=== PATIENT | female | born 1980 | race Two or more races ===

== ENCOUNTER 2017-10-14 18:03 | Emergency (ER) | payer OTHER ==
[2017-10-14 18:53] LABS: BASOPHILS # (AUTO) 0.1 10^3/uL (0.0-0.1); BASOPHILS % (AUTO) 0.7 %; EOSINOPHILS # (AUTO) 0.5 10^3/uL (0.0-0.7); EOSINOPHILS % (AUTO) 5.1 %; HGB - HEMOGLOBIN 13.3 g/dL (12.0-16.0); LYMPHOCYTES # (AUTO) 3.4 10^3/uL (1.5-3.5); LYMPHOCYTES % (AUTO) 34.5 %; MEAN CORPUSCULAR HEMOGLOBIN 25.8 pg (27.0-31.0); MEAN CORPUSCULAR HGB CONC 31.6 g/dL (32.0-36.0); MEAN CORPUSCULAR VOLUME 81.7 fL (81.0-99.0); MEAN PLATELET VOLUME 8.3 fL (7.9-10.8); MONOCYTES # (AUTO) 0.8 10^3/uL (0.0-1.0); MONOCYTES % (AUTO) 8.1 %; NEUTROPHILS # (AUTO) 5.1 10^3/uL (1.5-6.6); NEUTROPHILS % (AUTO) 51.6 %; PLT - PLATELET COUNT 286 10^3/uL (130-450); RED BLOOD COUNT 5.17 10^6/uL (4.20-5.40); RED CELL DISTRIBUTION WIDTH 17.5 % (12.0-15.0); WHITE BLOOD COUNT 9.9 x10^3/uL (4.8-10.8)
[2017-10-14 19:07] LABS: ALBUMIN 3.7 g/dL (3.2-5.5); BILIRUBIN,TOTAL 0.9 mg/dL (0.2-1.0); CALCIUM 8.8 mg/dL (8.5-10.3); CREATININE 0.6 mg/dL (0.4-1.0); TOTAL PROTEIN 7.3 g/dL (6.7-8.2)
--- NOTE | 2017-10-14 21:38 | ED Physician Documentation ---
PD HPI NVD - Stated complaint Stated Complaint: AB PX - Chief complaint Chief Complaint: Abd Pain - History obtained from History obtained from: Patient - History of Present Illness Timing - onset: Last night Timing - details: Abrupt onset, Still present Associated symptoms: Abdominal pain, Other (nausea with only single vomiting, but having multiple diarrheal movements.) Contributing factors: No: Sick contact, Bad food Improved by: No: Vomiting Worsened by: Eating Similar symptoms before: Has not had sx before Recently seen: Not recently seen Review of Systems Constitutional: denies: Fever, Chills, Myalgias Nose: denies: Rhinorrhea / runny nose, Congestion Throat: denies: Sore throat Respiratory: reports: Cough (some since yesterday) GI: reports: Abdominal Pain (cramping pain upper abd, fairly consistent.), Nausea, Vomiting, Diarrhea. denies: Bloody / black stool : denies: Dysuria, Frequency Skin: denies: Rash, Lesions Neurologic: reports: Generalized weakness. denies: Focal weakness, Numbness, Near syncope PD PAST MEDICAL HISTORY - Past Medical History Past Medical History: Yes Respiratory: None Neuro: None GI: None - Past Surgical History Past Surgical History: No - Present Medications Home Medications: Ambulatory Orders Medication Instructions Recorded Confirmed Cyclobenzaprine [Flexeril] 10 mg PO Q8H PRN #20 tablet 08/11/13 Ibuprofen [Motrin] 400 mg PO Q6H PRN #30 tablet 08/11/13 Loratadine [Claritin] 08/11/13 08/11/13 Ondansetron Odt [Zofran] 4 mg TL Q6H PRN #15 tablet 10/15/17 - Allergies Allergies/Adverse Reactions: Allergies Allergy/AdvReac Type Severity Reaction Status Date / Time No Known Drug Allergies Allergy Verified 10/14/17 18:23 - Social History Does the pt smoke?: No Smoking Status: Never smoker Does the pt drink ETOH?: No Does the pt have substance abuse?: No - Immunizations Immunizations are current?: Yes - POLST Patient has POLST: No PD ED PE NORMAL - Vitals Vital signs reviewed: Yes - General General: Alert and oriented X 3, Well developed/nourished, Other (appears uncomfortable) - HEENT HEENT: Pharynx benign - Neck Neck: Supple, no meningeal sign, No adenopathy - Cardiac Cardiac: RRR, No murmur - Respiratory Respiratory: Clear bilaterally - Abdomen Abdomen: Normal bowel sounds, Soft, Non distended, No organomegaly, Other (very obese. Tender upper abd mid to right with some local guarding. ) - Female Female : Deferred - Rectal Rectal: Deferred - Back Back: No CVA TTP - Derm Derm: Normal color, Warm and dry, No rash - Extremities Extremities: No tenderness to palpate, Normal ROM s pain - Neuro Neuro: Alert and oriented X 3, No motor deficit, Normal speech Results - Vitals Vitals: Vital Signs - 24 hr 10/14/17 10/14/17 10/14/17 18:20 21:12 22:36 Temperature 36.1 C L 36.9 C 36.8 C Heart Rate 66 61 60 Respiratory 16 16 12 Rate Blood Pressure 127/88 H 113/82 H 114/65 O2 Saturation 98 98 98 10/14/17 23:32 Temperature 36.6 C Heart Rate 79 Respiratory 12 Rate Blood Pressure 114/66 O2 Saturation 94 Oxygen O2 Source Room air - Labs Labs: Laboratory Tests 10/14/17 10/14/17 10/14/17 18:45 18:45 22:52 WBC 9.9 RBC 5.17 Hgb 13.3 Hct 42.2 MCV 81.7 MCH 25.8 L MCHC 31.6 L RDW 17.5 H Plt Count 286 MPV 8.3 Neut # (Auto) 5.1 Lymph # (Auto) 3.4 Glenn # (Auto) 0.8 Eos # (Auto) 0.5 Baso # (Auto) 0.1 Absolute Nucleated RBC 0.00 Nucleated RBC % 0.0 Sodium 138 Potassium 3.9 Chloride 105 Carbon Dioxide 23 Anion Gap 10.0 BUN 10 Creatinine 0.6 Estimated GFR (MDRD) 113 Glucose 96 Calcium 8.8 Total Bilirubin 0.9 AST 22 ALT 21 Alkaline Phosphatase 63 Total Protein 7.3 Albumin 3.7 Globulin 3.6 Albumin/Globulin Ratio 1.0 Lipase 37 Urine Color YELLOW Urine Clarity CLEAR Urine pH 6.0 Ur Specific [place] >=1.030 H Urine Protein NEGATIVE Urine Glucose (UA) NEGATIVE Urine Ketones NEGATIVE Urine Occult Blood TRACE-INTA Urine Nitrite NEGATIVE Urine Bilirubin NEGATIVE Urine Urobilinogen 0.2 (NORMAL) Ur Leukocyte Esterase NEGATIVE Ur Microscopic Review NOT INDICATED Urine Culture Comments NOT INDICATED PD MEDICAL DECISION MAKING - ED course Complexity details: reviewed results (Abd US is okay; labs are good. ), re- evaluated patient (feeling better with fluids and meds. Had long wait in wiating room and seen/treated promptly once into room. ), considered differential (consider viral GE versus gallbladder, pancreatic, ulcer. ), d/w patient - Sepsis Event Vital Signs: Vital Signs - 24 hr 10/14/17 10/14/17 10/14/17 18:20 21:12 22:36 Temperature 36.1 C L 36.9 C 36.8 C Heart Rate 66 61 60 Respiratory 16 16 12 Rate Blood Pressure 127/88 H 113/82 H 114/65 O2 Saturation 98 98 98 10/14/17 23:32 Temperature 36.6 C Heart Rate 79 Respiratory 12 Rate Blood Pressure 114/66 O2 Saturation 94 Oxygen O2 Source Room air Departure - Departure Disposition: 01 Home, Self Care Clinical Impression: Nausea vomiting and diarrhea Abdominal pain Qualifiers: Abdominal location: upper abdomen, unspecified Qualified Code(s): R10.10 - Upper abdominal pain, unspecified Condition: Stable Record reviewed to determine appropriate education?: Yes Follow-Up: MCKENNA HODGE PA-C [Primary Care Provider] - Prescriptions: Ondansetron Odt [Zofran] 4 mg TL Q6H PRN #15 tablet PRN Reason: Nausea / Vomiting Comments: This seems likely to be a viral stomach flu and typically last a day or 2. On blood tests and ultrasound, there are no signs of gallbladder liver or pancreatic problems. There may be some irritation of the stomach so have bland food initially and progress as able. Antacid such as Maalox or Mylanta can be used as well. Use ondansetron if needed for persistent nausea and hydrocodone if needed for pain. He can use Imodium for any persistent diarrhea. Recheck if not improved over the next couple of days. Forms: Activity restrictions Discharge Date/Time: 10/15/17 00:13
[2017-10-14] MEDS ORDERED: SODIUM CHLORIDE 0.9% 1,000 ML IV ONE (21:47)
[2017-10-14] MEDS ORDERED: ONDANSETRON 4 MG/2 ML VIAL IVP STA (21:47)
[2017-10-14] MEDS ORDERED: MAG HYDROX/AL HYDROX/SIMETH 30 ML UDC PO STA (21:47)
[2017-10-14] MEDS ORDERED: KETOROLAC 60 MG/2 ML VIAL IVP STA (21:47)
[2017-10-14] MEDS ORDERED: DIPHENOX/ATROPINE 2.5/0.025 MG TABLET PO STA (21:48)
[2017-10-14 23:12] LABS: BILIRUBIN,URINE NEGATIVE (NEGATIVE); GLUCOSE, URINE (UA) NEGATIVE (NEGATIVE); KETONES,URINE (UA) NEGATIVE (NEGATIVE); LEUKOCYTE ESTERASE, URINE NEGATIVE (NEGATIVE); NITRITE,URINE NEGATIVE (NEGATIVE); OCCULT BLOOD,URINE TRACE-INTA (NEGATIVE); PROTEIN,URINE NEGATIVE (NEGATIVE); UROBILINOGEN,URINE 0.2 (NORMAL) E.U./dL (NORMAL)
[2017-10-14 23:17] LABS: CLARITY,URINE CLEAR (CLEAR)
--- NOTE | 2017-10-14 23:20 | Ultrasound Report ---
Procedure Date: 10/14/2017 Accession Number: [id number] / [id number] Procedure: US - Abdomen Limited CPT Code: FULL RESULT: EXAM: ABDOMEN ULTRASOUND LIMITED, RUQ EXAM DATE: 10/14/2017 10:49 PM. CLINICAL HISTORY: Upper abdominal pain since last night. COMPARISON: None. TECHNIQUE: Real-time scanning was performed with static images obtained. FINDINGS: Mild diffuse increased echogenicity of the liver seen with mild fatty liver. Liver length measures 17.3 cm. Antegrade portal venous flow is demonstrated. The gallbladder wall measures 2.6 mm. No gallbladder wall thickening. No pericholecystic fluid. No gallstones are seen. Negative sonographic Prabhakar sign. The common duct measures 3 mm. No bile duct dilatation. The right kidney measures 12.2 cm. No hydronephrosis is seen in the right kidney. IMPRESSION: 1. Mild fatty liver. 2. No acute findings are seen. The gallbladder appears within normal limits. RADIA
[2017-10-14 23:35] VITALS: BP 114/66
[2017-10-14] MEDS ORDERED: ONDANSETRON ODT 4 MG Prepack 2 TL PRN (23:57)
[2017-10-14] MEDS ORDERED: HYDROcod/ACET 5/325 Prepack 4 PO STA (23:57)
== END 2017-10-15 00:13 | disposition home or self-care (01) ==
LOC: ED 18:03
DX: R11.2 Nausea with vomiting, unspecified (principal); R19.7 Diarrhea, unspecified; R10.10 Upper abdominal pain, unspecified
CPT/HCPCS: 36415; 76705; 80053; 81003; 83690; 85025; 96361; 96374; 96375; 99283; 99284; A9270; 81001; 87086

== ENCOUNTER 2018-04-18 09:41 | Emergency (ER) | payer OTHER ==
[2018-04-18 10:09] VITALS: BP 133/78
[2018-04-18] MEDS ORDERED: NAPROXEN 250 MG TABLET PO STA (10:30)
[2018-04-18] MEDS ORDERED: HYDROcod/ACETAM 5/325 MG TABLET PO STA (10:30)
--- NOTE | 2018-04-18 11:20 | XRAY Report ---
Reason: left hip pain without apparent injury Procedure Date: 04/18/2018 Accession Number: [id number] / [id number] Procedure: XR - Hip w/Pelvis 2-3V LT CPT Code: FULL RESULT: EXAM: LEFT HIP RADIOGRAPHY EXAM DATE: 04/18/2018 10:48 AM. CLINICAL HISTORY: Pain. No known injury. Onset of symptoms at 3 AM. COMPARISON: None. TECHNIQUE: 2 views. FINDINGS: Bones: Normal. No fractures or bone lesion. Joints: Normal. No dislocation. The hip joint space is preserved. Soft Tissues: Normal. No soft tissue swelling. IMPRESSION: Technically limited examination with decreased bone resolution related to patient's skin characteristic/body habitus. 1. No fracture or dislocation seen. 2. No definite cause of patient's symptoms identified. If indicated clinically, further assessment could also be considered with CT or MRI. RADIA
--- NOTE | 2018-04-18 11:26 | ED Physician Documentation ---
PD HPI LOWER EXT INJURY - Stated complaint Stated Complaint: HIP PX - Chief complaint Chief Complaint: Ext Problem - History obtained from History obtained from: Patient - History of Present Illness PD HPI LOW EXT INJURY LOCATION: Left, Hip (lateral aspect) Type of injury: No: Fall (just awoke with it hurting, no noted injury/redness/URI symptoms.), Twist Where injury occurred: Home Timing - onset: Today Timing - duration: Hours (several) Timing - details: Abrupt onset, Still present Worsened by: Moving (not hurting with flex/extend at hip, but with abduction and pain is lateral.), Palpating (lateral hip over trochanter area) Associated symptoms: No: Weakness, Numbness, Swelling, Discolored Similar symptoms before: Has not had sx before Review of Systems Constitutional: denies: Fever, Myalgias Nose: denies: Rhinorrhea / runny nose, Congestion Throat: denies: Sore throat Respiratory: denies: Cough Skin: denies: Rash, Lesions Neurologic: denies: Focal weakness, Numbness PD PAST MEDICAL HISTORY - Past Medical History Respiratory: None Neuro: None GI: None - Past Surgical History Past Surgical History: No - Present Medications Home Medications: Ambulatory Orders Medication Instructions Recorded Confirmed Hydrocodone/Acetaminophen [[place] 1 each PO Q6H PRN #15 tablet 04/18/18 5-325 Tablet] Naproxen 500 mg PO BID #20 tablet 04/18/18 - Allergies Allergies/Adverse Reactions: Allergies Allergy/AdvReac Type Severity Reaction Status Date / Time No Known Drug Allergies Allergy Verified 04/18/18 10:09 - Social History Does the pt smoke?: No Smoking Status: Never smoker Does the pt drink ETOH?: No Does the pt have substance abuse?: No - Immunizations Immunizations are current?: Yes - POLST Patient has POLST: No PD ED PE NORMAL - Vitals Vital signs reviewed: Yes - General General: Alert and oriented X 3, No acute distress, Well developed/nourished - HEENT HEENT: Pharynx benign - Neck Neck: Supple, no meningeal sign, No adenopathy - Cardiac Cardiac: RRR, No murmur - Respiratory Respiratory: Clear bilaterally - Abdomen Abdomen: Soft, Non tender - Back Back: No CVA TTP, No spinal TTP, Other (some tender at lower SI joint area) - Derm Derm: Normal color, Warm and dry - Extremities Extremities: Other (left lateral hip with tenderness over bursal area without redness, rash nor sores. Medial hip is not tender and has good ROM) Results - Vitals Vitals: Vital Signs - 24 hr 04/18/18 04/18/18 09:50 11:53 Temperature 36.7 C 36.5 C Heart Rate 61 78 Respiratory 20 Rate Blood Pressure 133/78 H 133/78 H O2 Saturation 18 L 99 Oxygen O2 Source Room air - Rads (name of study) left hip Radiology: Prelim report reviewed (no bony lesions. ) PD MEDICAL DECISION MAKING - ED course Complexity details: reviewed results, considered differential (seems like bursitis or has some muscle irritation. ) Departure - Departure Disposition: 01 Home, Self Care Clinical Impression: Acute pain of left hip Condition: Stable Record reviewed to determine appropriate education?: Yes Instructions: ED Strain Muscle Ext Prescriptions: Hydrocodone/Acetaminophen [[place] 5-325 Tablet] 1 each PO Q6H PRN #15 tablet PRN Reason: Pain Naproxen 500 mg PO BID #20 tablet Comments: Your x-ray appears normal. There is no obvious rash or such on the skin. It does not sound infection at this point. I presume some muscle strain nor inflammation of the bursa which is the cushion over the side of the hip. I would have you try some anti-inflammatory such as naproxen twice daily for the next week to 10 days. Add Tylenol or hydrocodone if needed for pain. Follow-up with your primary care if not improved over the next several days. Watch for other symptoms such as rash, numbness, increasing pain, fever or anything else that would change the thought process of what it is. Forms: Activity restrictions Discharge Date/Time: 04/18/18 11:40
== END 2018-04-18 11:40 | disposition home or self-care (01) ==
LOC: ED 09:41
DX: M25.552 Pain in left hip (principal)
CPT/HCPCS: 73502; 99283; A9270

== ENCOUNTER 2018-04-19 15:23 | Emergency (ER) | payer OTHER ==
[2018-04-19 15:35] VITALS: BP 135/78
--- NOTE | 2018-04-19 15:40 | ED Physician Documentation ---
History of Present Illness - Stated complaint Stated Complaint: LF HIP PX - Chief complaint Chief Complaint: Ext Problem - History obtained from History obtained from: Patient - History of Present Illness Timing: How many days ago (3) Pain level max: 7 Pain level now: 5 - Additonal information Additional information: 38-year-old female presents to the emergency department left hip pain. Started after she slipped and caught herself before she fell a few days ago. Worse with rotating the hip. Pain is mainly in the lateral aspect of the hip. Seen here 2 days ago for same. Pain is improving, but requesting a longer work note. Better with rest Review of Systems Constitutional: denies: Fever, Chills GI: denies: Vomiting Musculoskeletal: denies: Neck pain, Back pain Neurologic: denies: Focal weakness, Numbness PD PAST MEDICAL HISTORY - Past Medical History Respiratory: None Neuro: None GI: None - Past Surgical History Past Surgical History: No - Present Medications Home Medications: Ambulatory Orders Medication Instructions Recorded Confirmed Hydrocodone/Acetaminophen [[place] 1 each PO Q6H PRN #15 tablet 04/18/18 5-325 Tablet] Naproxen 500 mg PO BID #20 tablet 04/18/18 - Allergies Allergies/Adverse Reactions: Allergies Allergy/AdvReac Type Severity Reaction Status Date / Time No Known Drug Allergies Allergy Verified 04/19/18 15:34 - Social History Does the pt smoke?: No Smoking Status: Never smoker Does the pt drink ETOH?: No Does the pt have substance abuse?: No - Immunizations Immunizations are current?: Yes - POLST Patient has POLST: No PD ED PE NORMAL - Vitals Vital signs reviewed: Yes - General General: Alert and oriented X 3, No acute distress - HEENT HEENT: Moist mucous membranes - Neck Neck: Supple, no meningeal sign - Derm Derm: Warm and dry - Extremities Extremities: No edema, No calf tenderness / cord, Other (L hip - Tender palpation on the lateral aspect of the thigh. No bony tenderness. Full range of motion of the hip, pain is present with active range of motion but not passive.) - Neuro Neuro: Alert and oriented X 3 Results - Vitals Vitals: Vital Signs - 24 hr 04/19/18 15:32 Temperature 36.2 C L Heart Rate 75 Respiratory 18 Rate Blood Pressure 135/78 H O2 Saturation 99 Oxygen O2 Source Room air PD MEDICAL DECISION MAKING - ED course Complexity details: reviewed old records, considered differential, d/w patient, d/w family ED course: 38-year-old female with what appears to be muscle strain of her left lower extremity. She is well-appearing, nontoxic. Neurovascular intact. We will continue supportive care. Patient counseled regarding signs and symptoms for which I believe and urgent re-evaluation would be necessary. Patient with good understanding of and agreement to plan and is comfortable going home at this time This document was made in part using voice recognition software. While efforts are made to proofread this document, sound alike and grammatical errors may occur. Departure - Departure Disposition: Home, Self Care Clinical Impression: Strain of left hip Qualifiers: Encounter type: initial encounter Qualified Code(s): S76.012A - Strain of muscle, fascia and tendon of left hip, initial encounter Condition: Good Instructions: ED Strain Muscle Ext Follow-Up: your,doctor in 1 week [Other] Comments: Continue the medications as previously prescribed. Return if you worsen. Heat may also help this now. Forms: Activity restrictions Discharge Date/Time: 04/19/18 15:51
== END 2018-04-19 15:51 | disposition home or self-care (01) ==
LOC: ED 15:23
DX: S76.012A Strain of muscle, fascia and tendon of left hip, initial encounter (principal); W18.40XA Slipping, tripping and stumbling without falling, unspecified, initial encounter
CPT/HCPCS: 99282

== ENCOUNTER 2018-07-02 22:44 | Emergency (ER) | payer OTHER ==
--- NOTE | 2018-07-02 23:40 | ED Physician Documentation ---
PD HPI NVD - Stated complaint Stated Complaint: VOMITING - Chief complaint Chief Complaint: Abd Pain - History obtained from History obtained from: Patient - History of Present Illness Timing - onset: Enter time (03:00), Today Timing - details: Abrupt onset Pain level max: 0 Pain level now: 0 Associated symptoms: Other (did not take temp. at home). No: Abdominal pain Worsened by: Eating Similar symptoms before: Has not had sx before Recently seen: Not recently seen - Additonal information Additional information: c/o nausea, vomiting, diarrhea since 3 AM. unable to tolerate any PO including liquids Review of Systems Constitutional: reports: Chills, Sweats Cardiac: reports: Reviewed and negative Respiratory: reports: Reviewed and negative GI: reports: Nausea, Vomiting, Diarrhea. denies: Abdominal Pain : reports: Reviewed and negative PD PAST MEDICAL HISTORY - Past Medical History Respiratory: None Neuro: None GI: None - Past Surgical History Past Surgical History: No - Present Medications Home Medications: Ambulatory Orders Medication Instructions Recorded Confirmed Hydrocodone/Acetaminophen [[place] 1 each PO Q6H PRN #15 tablet 04/18/18 5-325 Tablet] Naproxen 500 mg PO BID #20 tablet 04/18/18 Diphenoxylate/Atropine [Lomotil] 1 - 2 each PO QID PRN #10 tablet 07/03/18 Ondansetron Odt [Zofran] 4 mg TL Q6H PRN #10 tablet 07/03/18 - Allergies Allergies/Adverse Reactions: Allergies Allergy/AdvReac Type Severity Reaction Status Date / Time Sulfa (Sulfonamide Allergy Rash Verified 07/02/18 22:51 Antibiotics) - Social History Does the pt smoke?: No Smoking Status: Never smoker Does the pt drink ETOH?: No Does the pt have substance abuse?: No - Immunizations Immunizations are current?: Yes - POLST Patient has POLST: No PD ED PE NORMAL - Vitals Vital signs reviewed: Yes - General General: Alert and oriented X 3, No acute distress, Well developed/nourished - Cardiac Cardiac: RRR, No murmur - Respiratory Respiratory: No respiratory distress, Clear bilaterally - Abdomen Abdomen: Normal bowel sounds, Soft, Non tender, Non distended Results - Vitals Vitals: Vital Signs - 24 hr 07/02/18 07/03/18 22:48 01:52 Temperature 36.9 C 36.4 C L Heart Rate 88 79 Respiratory 17 18 Rate Blood Pressure 116/82 H 114/68 O2 Saturation 98 99 Oxygen O2 Source Room air - Labs Labs: Laboratory Tests 07/02/18 07/02/18 23:50 23:50 WBC 11.7 H RBC 4.82 Hgb 12.2 Hct 37.7 MCV 78.2 L MCH 25.4 L MCHC 32.5 RDW 15.7 H Plt Count 377 MPV 8.1 Neut # (Auto) 9.5 H Lymph # (Auto) 1.3 L [place] # (Auto) 0.6 Eos # (Auto) 0.2 Baso # (Auto) 0.1 Absolute Nucleated RBC 0.00 Nucleated RBC % 0.0 Sodium 137 Potassium 3.6 Chloride 102 Carbon Dioxide 25 Anion Gap 10.0 BUN 10 Creatinine 0.5 Estimated GFR (MDRD) 139 Glucose 132 H Calcium 8.6 Total Bilirubin 1.4 H AST 23 ALT 24 Alkaline Phosphatase 57 Total Protein 7.9 Albumin 3.8 Globulin 4.1 Albumin/Globulin Ratio 0.9 L Lipase 29 PD MEDICAL DECISION MAKING - ED course Complexity details: reviewed results, re-evaluated patient, considered differential, d/w patient ED course: on reevaluation after IV fluids, zofran, and po lomotil, patient reports feeling significant improvement and is comfortable with d/c Departure - Departure Disposition: 01 Home, Self Care Clinical Impression: Vomiting and diarrhea Condition: Good Instructions: ED Vomiting Diarrhea Nonspecific Ad Follow-Up: Onofre Flynn MD [Primary Care Provider] - Prescriptions: Diphenoxylate/Atropine [Lomotil] 1 - 2 each PO QID PRN #10 tablet PRN Reason: Diarrhea Ondansetron Odt [Zofran] 4 mg TL Q6H PRN #10 tablet PRN Reason: Nausea / Vomiting Discharge Date/Time: 07/03/18 01:52
[2018-07-02] MEDS ORDERED: SODIUM CHLORIDE 0.9% 1,000 ML IV STA (23:46)
[2018-07-02] MEDS ORDERED: ONDANSETRON 4 MG/2 ML VIAL IVP STA (23:46)
[2018-07-02] MEDS ORDERED: DIPHENOX/ATROPINE 2.5/0.025 MG TABLET PO STA (23:47)
[2018-07-03 00:12] LABS: BASOPHILS # (AUTO) 0.1 10^3/uL (0.0-0.1); BASOPHILS % (AUTO) 0.5 %; EOSINOPHILS # (AUTO) 0.2 10^3/uL (0.0-0.7); EOSINOPHILS % (AUTO) 1.4 %; HGB - HEMOGLOBIN 12.2 g/dL (12.0-16.0); LYMPHOCYTES # (AUTO) 1.3 10^3/uL (1.5-3.5); LYMPHOCYTES % (AUTO) 11.3 %; MEAN CORPUSCULAR HEMOGLOBIN 25.4 pg (27.0-31.0); MEAN CORPUSCULAR HGB CONC 32.5 g/dL (32.0-36.0); MEAN CORPUSCULAR VOLUME 78.2 fL (81.0-99.0); MEAN PLATELET VOLUME 8.1 fL (7.9-10.8); MONOCYTES # (AUTO) 0.6 10^3/uL (0.0-1.0); MONOCYTES % (AUTO) 5.3 %; NEUTROPHILS # (AUTO) 9.5 10^3/uL (1.5-6.6); NEUTROPHILS % (AUTO) 81.5 %; PLT - PLATELET COUNT 377 10^3/uL (130-450); RED BLOOD COUNT 4.82 10^6/uL (4.20-5.40); RED CELL DISTRIBUTION WIDTH 15.7 % (12.0-15.0); WHITE BLOOD COUNT 11.7 x10^3/uL (4.8-10.8)
[2018-07-03 00:30] LABS: ALBUMIN 3.8 g/dL (3.2-5.5); ALBUMIN/GLOBULIN RATIO 0.9 (1.0-2.2); BILIRUBIN,TOTAL 1.4 mg/dL (0.2-1.0); CALCIUM 8.6 mg/dL (8.5-10.3); CREATININE 0.5 mg/dL (0.4-1.0); TOTAL PROTEIN 7.9 g/dL (6.7-8.2)
[2018-07-03] MEDS ORDERED: ONDANSETRON ODT 4 MG Prepack 2 TL STA (01:08)
[2018-07-03 01:52] VITALS: BP 114/68
== END 2018-07-03 01:52 | disposition home or self-care (01) ==
LOC: ED 22:44
DX: R11.2 Nausea with vomiting, unspecified (principal); R19.7 Diarrhea, unspecified
CPT/HCPCS: 36415; 80053; 83690; 85025; 96374; 99283; A9270

== ENCOUNTER 2018-09-20 06:59 | Emergency (ER) | payer OTHER ==
--- NOTE | 2018-09-20 08:19 | ED Physician Documentation ---
PD HPI ABD PAIN - Stated complaint Stated Complaint: LOW BACK PX/VOMITING - Chief complaint Chief Complaint: Abd Pain - History obtained from History obtained from: Patient, Family - History of Present Illness Timing - onset: Enter time (399), Today Timing - duration: Hours Timing - details: Abrupt onset, Still present Quality: Sharp, Pain Location: LUQ Radiation: Left flank Improved by: Other (nothing) Worsened by: Other (nothing) Associated symptoms: Nausea, Vomiting Similar symptoms before: Has not had sx before Recently seen: Not recently seen - Additional information Additional information: Previously well 38-year-old female awoke in the middle of the night with left flank pain that increased through the night and she is subsequently developed nausea and vomiting. She has no modifying factors for the pain. She is finally made her way to the emergency department with 8 out of 10 pain in her left flank radiating around to the front. She has not had these symptoms previously she has not been recently ill.Previously well 38-year-old female awoke in the middle of the night with left flank pain that increased through the night and she is subsequently developed nausea and vomiting. She has no modifying factors for the pain. She is finally made her way to the emergency department with 8 out of 10 pain in her left flank radiating around to the front. She has not had these symptoms previously she has not been recently ill. Review of Systems Constitutional: denies: Fever Eyes: denies: Decreased vision Ears: denies: Ear pain Nose: denies: Rhinorrhea / runny nose, Congestion Throat: denies: Sore throat Cardiac: denies: Chest pain / pressure, Palpitations Respiratory: denies: Dyspnea, Cough GI: reports: Abdominal Pain, Nausea, Vomiting : denies: Dysuria, Frequency Skin: denies: Rash Musculoskeletal: reports: Back pain. denies: Neck pain, Extremity pain PD PAST MEDICAL HISTORY - Past Medical History Respiratory: None Neuro: None GI: None - Past Surgical History Past Surgical History: No - Present Medications Home Medications: Ambulatory Orders Medication Instructions Recorded Confirmed Hydrocodone/Acetaminophen [[place] 1 each PO Q6H PRN #15 tablet 04/18/18 5-325 Tablet] Naproxen 500 mg PO BID #20 tablet 04/18/18 Diphenoxylate/Atropine [Lomotil] 1 - 2 each PO QID PRN #10 tablet 07/03/18 Ondansetron Odt [Zofran] 4 mg TL Q6H PRN #10 tablet 07/03/18 Hydrocodone/Acetaminophen 1 - 2 each PO Q6H PRN #14 tablet 09/20/18 [Hydrocodon-Acetaminophen 5-325] - Allergies Allergies/Adverse Reactions: Allergies Allergy/AdvReac Type Severity Reaction Status Date / Time Sulfa (Sulfonamide Allergy Rash Verified 09/20/18 07:16 Antibiotics) - Social History Does the pt smoke?: No Smoking Status: Never smoker Does the pt drink ETOH?: No Does the pt have substance abuse?: No - Immunizations Immunizations are current?: Yes - POLST Patient has POLST: No PD ED PE NORMAL - Vitals Vital signs reviewed: Yes (tachy and hypertensive) - General General: Alert and oriented X 3, Well developed/nourished, 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) - HEENT HEENT: Atraumatic, PERRL, EOMI - Neck Neck: Supple, no meningeal sign, No bony TTP - Cardiac Cardiac: No murmur, Other (tachy ) - Respiratory Respiratory: No respiratory distress, Clear bilaterally - Abdomen Abdomen: Normal bowel sounds, Soft, Non tender, Non distended, No organomegaly - Back Back: No CVA TTP, No spinal TTP - Derm Derm: Normal color, Warm and dry, No rash - Extremities Extremities: No deformity, No edema - Neuro Neuro: Alert and oriented X 3, 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, No motor deficit, No sensory deficit, Normal speech Eye Opening: Spontaneous Motor: Obeys Commands Verbal: Oriented GCS Score: 15 - Psych Psych: Normal mood Results - Vitals Vitals: Vital Signs - 24 hr 09/20/18 09/20/18 07:12 09:16 Temperature 36.7 C Heart Rate 109 H 60 Respiratory 16 14 Rate Blood Pressure 147/98 H 123/64 O2 Saturation 96 97 Oxygen O2 Source Room air - Labs Labs: Laboratory Tests 09/20/18 09/20/18 09/20/18 08:35 08:35 09:23 WBC 10.5 RBC 5.11 Hgb 12.7 Hct 40.3 MCV 78.9 L MCH 24.9 L MCHC 31.5 L RDW 14.9 Plt Count 480 H MPV 10.6 Neut # (Auto) 7.2 H Lymph # (Auto) 2.5 [place] # (Auto) 0.5 Eos # (Auto) 0.2 Baso # (Auto) 0.1 Absolute Nucleated RBC 0.00 Nucleated RBC % 0.0 Sodium 137 Potassium 4.3 Chloride 104 Carbon Dioxide 20 L Anion Gap 13.0 BUN 13 Creatinine 0.7 Estimated GFR (MDRD) 94 Glucose 139 H Calcium 8.8 Total Bilirubin 0.9 AST 29 ALT 24 Alkaline Phosphatase 62 Total Protein 8.1 Albumin 3.8 Globulin 4.3 H Albumin/Globulin Ratio 0.9 L Lipase 32 Urine Color YELLOW Urine Clarity HAZY Urine pH 7.5 Ur Specific [place] <=1.005 Urine Protein NEGATIVE Urine Glucose (UA) NEGATIVE Urine Ketones NEGATIVE Urine Occult Blood LARGE H Urine Nitrite NEGATIVE Urine Bilirubin NEGATIVE Urine Urobilinogen 0.2 (NORMAL) Ur Leukocyte Esterase NEGATIVE Urine RBC TNTC H Urine WBC 0-3 Ur Squamous Epith Cells MANY Squamous H Urine Bacteria Many H Urine Mucus Few Strands Ur Microscopic Review INDICATED Urine Culture Comments NOT INDICATED Urine HCG, Qual NEGATIVE - Rads (name of study) CT ab/pel Radiology: Prelim report reviewed (Impression: 1. 4 mm proximal left ureteral calculus with upstream minimal left hydronephrosis. Other findings as noted above.), EMP read indepedently, See rad report Procedures - Bedside sono Bedside sono by EMP: With the use of bedside ultrasound the left kidney is imaged and it is sonographically nontender and there is evidence of hydronephrosis. PD MEDICAL DECISION MAKING - ED course Complexity details: reviewed old records, reviewed results, re-evaluated patient, considered differential, d/w patient, d/w family ED course: 38-year-old female with left flank pain has hydronephrosis on the bedside exam she has history consistent with kidney stone and an IV is begun she is given Toradol and Zofran and a CT is ordered. Departure - Departure Disposition: 01 Home, Self Care Clinical Impression: Ureterolithiasis Condition: Stable Instructions: ED Stone Renal W Colic Follow-Up: Onofre Flynn MD [Primary Care Provider] - Prescriptions: Hydrocodone/Acetaminophen [Hydrocodon-Acetaminophen 5-325] 1 - 2 each PO Q6H PRN #14 tablet PRN Reason: pain Forms: Activity restrictions
[2018-09-20] MEDS ORDERED: SODIUM CHLORIDE 0.9% 1,000 ML IV ONE (08:20)
[2018-09-20] MEDS ORDERED: KETOROLAC 30 MG/ML VIAL IVP STA (08:20)
[2018-09-20] MEDS ORDERED: ONDANSETRON 4 MG/2 ML VIAL IVP STA (08:20)
[2018-09-20 09:10] LABS: ALBUMIN 3.8 g/dL (3.2-5.5); ALBUMIN/GLOBULIN RATIO 0.9 (1.0-2.2); BASOPHILS # (AUTO) 0.1 10^3/uL (0.0-0.1); BASOPHILS % (AUTO) 0.9 %; BILIRUBIN,TOTAL 0.9 mg/dL (0.2-1.0); CALCIUM 8.8 mg/dL (8.5-10.3); CREATININE 0.7 mg/dL (0.4-1.0); EOSINOPHILS # (AUTO) 0.2 10^3/uL (0.0-0.7); EOSINOPHILS % (AUTO) 1.4 %; HGB - HEMOGLOBIN 12.7 g/dL (12.0-16.0); LYMPHOCYTES # (AUTO) 2.5 10^3/uL (1.5-3.5); MEAN CORPUSCULAR HEMOGLOBIN 24.9 pg (27.0-31.0); MEAN CORPUSCULAR HGB CONC 31.5 g/dL (32.0-36.0); MEAN CORPUSCULAR VOLUME 78.9 fL (81.0-99.0); MEAN PLATELET VOLUME 10.6 fL (7.9-10.8); MONOCYTES # (AUTO) 0.5 10^3/uL (0.0-1.0); MONOCYTES % (AUTO) 4.4 %; NEUTROPHILS # (AUTO) 7.2 10^3/uL (1.5-6.6); NEUTROPHILS % (AUTO) 68.6 %; PLT - PLATELET COUNT 480 10^3/uL (130-450); RED BLOOD COUNT 5.11 10^6/uL (4.20-5.40); RED CELL DISTRIBUTION WIDTH 14.9 % (12.0-15.0); TOTAL PROTEIN 8.1 g/dL (6.7-8.2); WHITE BLOOD COUNT 10.5 x10^3/uL (4.8-10.8)
--- NOTE | 2018-09-20 09:13 | CT Report ---
Reason: L flank pain hydro on bedside Procedure Date: 09/20/2018 Accession Number: [id number] / [id number] Procedure: CT - Abdomen/Pelvis WO CPT Code: FULL RESULT: EXAM: CT ABDOMEN AND PELVIS EXAM DATE: 09/20/2018 08:45 AM. CLINICAL HISTORY: L flank pain hydro on bedside. COMPARISONS: None. TECHNIQUE: Routine helical CT imaging was performed through the abdomen and pelvis. IV contrast: None. Enteric contrast: No. Reconstructions: Coronal and sagittal. In accordance with CT protocol optimization, one or more of the following dose reduction techniques were utilized for this exam: automated exposure control, adjustment of mA and/or KV based on patient size, or use of iterative reconstructive technique. FINDINGS: Lung Bases: Unremarkable. Liver: Normal. No masses. Gallbladder/Bile Ducts: Unremarkable. Spleen: Normal. Pancreas: Normal. Adrenal Glands: Normal. Kidneys: Minimal left hydronephrosis. 4 mm calculus at the expected course of the proximal left ureter. No right renal calculi or other convincing ureteral calculi. No contour deforming renal mass. Peritoneal Cavity/Bowel: No free air or free fluid. No mass or acute inflammatory process. No obstruction. No pathologic lymphadenopathy. Pelvic Organs: Normal. The bladder and visualized pelvic organs are within normal limits. Vasculature: No aneurysms or other significant abnormality. Bones: No significant abnormality. Other: None. IMPRESSION: 1. 4 mm proximal left ureteral calculus with upstream minimal left hydronephrosis. 2. Other findings as noted above. RADIA
[2018-09-20 09:32] LABS: BILIRUBIN,URINE NEGATIVE (NEGATIVE); GLUCOSE, URINE (UA) NEGATIVE (NEGATIVE); KETONES,URINE (UA) NEGATIVE (NEGATIVE); LEUKOCYTE ESTERASE, URINE NEGATIVE (NEGATIVE); NITRITE,URINE NEGATIVE (NEGATIVE); OCCULT BLOOD,URINE LARGE (NEGATIVE); PH,URINE 7.5 PH (5.0-7.5); PROTEIN,URINE NEGATIVE (NEGATIVE); UROBILINOGEN,URINE 0.2 (NORMAL) E.U./dL (NORMAL)
[2018-09-20 09:33] LABS: CLARITY,URINE HAZY (CLEAR)
[2018-09-20 09:35] LABS: HCG UR QUAL NEGATIVE
[2018-09-20 09:41] LABS: BACTERIA,URINE Many /HPF (None Seen); MUCUS,URINE Few Strands; RBC,URINE TNTC /HPF (0-5); SQUAMOUS EPITHELIAL CELL,UR MANY Squamous (<= Few)
[2018-09-20 11:49] VITALS: BP 119/68
== END 2018-09-20 11:48 | disposition home or self-care (01) ==
LOC: ED 06:59
DX: N13.2 Hydronephrosis with renal and ureteral calculous obstruction (principal)
CPT/HCPCS: 36415; 74176; 80053; 81001; 81003; 81025; 83690; 85025; 87086; 96361; 96374; 99284

== ENCOUNTER 2018-10-22 17:47 | Emergency (ER) | payer OTHER ==
[2018-10-22] MEDS ORDERED: SODIUM CHLORIDE 0.9% 1,000 ML IV ONE (18:36)
[2018-10-22] MEDS ORDERED: ONDANSETRON 4 MG/2 ML VIAL IVP STA (18:36)
[2018-10-22] MEDS ORDERED: KETOROLAC 30 MG/ML VIAL IVP STA (18:36)
--- NOTE | 2018-10-22 18:38 | ED Physician Documentation ---
PD HPI ABD PAIN - Stated complaint Stated Complaint: LOW BACK PAIN/VOMITING - Chief complaint Chief Complaint: Abd Pain - History obtained from History obtained from: Patient - History of Present Illness Timing - onset: Today (38-year-old woman had a first episode of renal colic a month ago with a 4 mm left-sided ureteral stone. Pain is back acutely over the last few hours and severe with nausea and vomiting. She tried to take ibuprofen but could not keep it down. She did not have any pain from last month until today. She was seen here just over a month ago and a CT was done.) Review of Systems Constitutional: reports: Reviewed and negative Cardiac: reports: Reviewed and negative Respiratory: reports: Reviewed and negative PD PAST MEDICAL HISTORY - Past Medical History Respiratory: None Neuro: None GI: None - Past Surgical History Past Surgical History: No - Present Medications Home Medications: Ambulatory Orders Medication Instructions Recorded Confirmed Ciprofloxacin HCl [Cipro] 500 mg PO BID #20 tablet 10/22/18 Hydrocodone/Acetaminophen 1 - 2 each PO Q6H PRN #14 tablet 10/22/18 [Hydrocodon-Acetaminophen 5-325] Loratadine [Claritin] 10 mg PO 10/22/18 Ondansetron Odt [Zofran] 4 mg TL Q6H PRN #10 tablet 10/22/18 Tamsulosin [Flomax] 0.4 mg PO DAILY #14 capsule 10/22/18 - Allergies Allergies/Adverse Reactions: Allergies Allergy/AdvReac Type Severity Reaction Status Date / Time Sulfa (Sulfonamide Allergy Rash Verified 09/20/18 07:16 Antibiotics) - Social History Does the pt smoke?: No Smoking Status: Never smoker Does the pt drink ETOH?: No Does the pt have substance abuse?: No - Immunizations Immunizations are current?: Yes - POLST Patient has POLST: No PD ED PE NORMAL - Vitals Vital signs reviewed: Yes - General General: Alert and oriented X 3, Other (Slightly uncomfortable) - Abdomen Abdomen: Normal bowel sounds, Non tender - Back Back: No CVA TTP - Neuro Neuro: Alert and oriented X 3, Normal speech Results - Vitals Vitals: Vital Signs - 24 hr 10/22/18 18:16 Temperature 36.8 C Heart Rate 65 Respiratory 18 Rate Blood Pressure 156/87 H O2 Saturation 100 Oxygen O2 Source Room air - Labs Labs: Laboratory Tests 10/22/18 10/22/18 10/22/18 18:24 18:24 18:45 WBC 13.4 H RBC 4.97 Hgb 11.9 L Hct 39.3 MCV 79.1 L MCH 23.9 L MCHC 30.3 L RDW 15.9 H Plt Count 408 MPV 10.1 Neut # (Auto) 7.7 H Lymph # (Auto) 4.3 H [place] # (Auto) 1.0 Eos # (Auto) 0.3 Baso # (Auto) 0.1 Absolute Nucleated RBC 0.00 Nucleated RBC % 0.0 Sodium 139 Potassium 3.6 Chloride 106 Carbon Dioxide 21 Anion Gap 12.0 BUN 14 Creatinine 0.8 Estimated GFR (MDRD) 81 L Glucose 102 H Calcium 9.1 Total Bilirubin 0.8 AST 23 ALT 24 Alkaline Phosphatase 53 Total Protein 8.0 Albumin 3.9 Globulin 4.1 Albumin/Globulin Ratio 1.0 Lipase 32 Urine Color YELLOW Urine Clarity HAZY Urine pH 6.0 Ur Specific [place] 1.025 Urine Protein TRACE Urine Glucose (UA) NEGATIVE Urine Ketones NEGATIVE Urine Occult Blood SMALL H Urine Nitrite NEGATIVE Urine Bilirubin NEGATIVE Urine Urobilinogen 0.2 (NORMAL) Ur Leukocyte Esterase TRACE H Urine RBC 6-10 H Urine WBC 4-5 Ur Squamous Epith Cells FEW Squamous Urine Bacteria Many H Ur Microscopic Review INDICATED Urine Culture Comments INDICATED Urine HCG, Qual NEGATIVE PD MEDICAL DECISION MAKING - ED course ED course: 38-year-old woman with recurrent renal colic on the left. She does have a white counts and some bacteriuria today but without fever or clinical symptoms consistent with UTI. Her pain was easy to control here and was pain-free after a single dose of Toradol. Case discussed by phone with Adrienne Joyce, agrees with antibiotics pending follow-up and cultures, but given the local circumstances th is really is not consistent with an infected stone per se. Departure - Departure Disposition: 01 Home, Self Care Clinical Impression: Ureterolithiasis Condition: Good Record reviewed to determine appropriate education?: Yes Instructions: ED Stone Renal W Colic Follow-Up: Adrienne Joyce MD [Physician No Access] - Within 3 Days Prescriptions: Ciprofloxacin HCl [Cipro] 500 mg PO BID #20 tablet Hydrocodone/Acetaminophen [Hydrocodon-Acetaminophen 5-325] 1 - 2 each PO Q6H PRN #14 tablet PRN Reason: pain Ondansetron Odt [Zofran] 4 mg TL Q6H PRN #10 tablet PRN Reason: Nausea / Vomiting Tamsulosin [Flomax] 0.4 mg PO DAILY #14 capsule Comments: We will culture your urine, the results should be done in 48-72 hours. If an antibiotic change is necessary we will call you. Return if worse in the meantime, especially if you develop increasing flank pain, fevers, or cannot keep down the medication. Your blood pressure was elevated today on check into the emergency department. This does not mean that you have hypertension, it is a common phenomenon to come to the emergency department and have elevated blood pressure. I recommend that you see your primary care physician within the week to have it rechecked when you are feeling better.
[2018-10-22 18:48] LABS: BASOPHILS # (AUTO) 0.1 10^3/uL (0.0-0.1); BASOPHILS % (AUTO) 0.7 %; EOSINOPHILS # (AUTO) 0.3 10^3/uL (0.0-0.7); EOSINOPHILS % (AUTO) 2.2 %; HGB - HEMOGLOBIN 11.9 g/dL (12.0-16.0); LYMPHOCYTES # (AUTO) 4.3 10^3/uL (1.5-3.5); LYMPHOCYTES % (AUTO) 31.8 %; MEAN CORPUSCULAR HEMOGLOBIN 23.9 pg (27.0-31.0); MEAN CORPUSCULAR HGB CONC 30.3 g/dL (32.0-36.0); MEAN CORPUSCULAR VOLUME 79.1 fL (81.0-99.0); MEAN PLATELET VOLUME 10.1 fL (7.9-10.8); MONOCYTES % (AUTO) 7.5 %; NEUTROPHILS # (AUTO) 7.7 10^3/uL (1.5-6.6); NEUTROPHILS % (AUTO) 57.4 %; PLT - PLATELET COUNT 408 10^3/uL (130-450); RED BLOOD COUNT 4.97 10^6/uL (4.20-5.40); RED CELL DISTRIBUTION WIDTH 15.9 % (12.0-15.0); WHITE BLOOD COUNT 13.4 x10^3/uL (4.8-10.8)
[2018-10-22 19:00] LABS: BILIRUBIN,URINE NEGATIVE (NEGATIVE); GLUCOSE, URINE (UA) NEGATIVE (NEGATIVE); KETONES,URINE (UA) NEGATIVE (NEGATIVE); LEUKOCYTE ESTERASE, URINE TRACE (NEGATIVE); NITRITE,URINE NEGATIVE (NEGATIVE); OCCULT BLOOD,URINE SMALL (NEGATIVE); PROTEIN,URINE TRACE mg/dL (NEGATIVE); UROBILINOGEN,URINE 0.2 (NORMAL) E.U./dL (NORMAL)
[2018-10-22 19:04] LABS: CLARITY,URINE HAZY (CLEAR); HCG UR QUAL NEGATIVE
[2018-10-22 19:05] LABS: BACTERIA,URINE Many /HPF (None Seen); SQUAMOUS EPITHELIAL CELL,UR FEW Squamous (<= Few)
[2018-10-22 19:16] LABS: ALBUMIN 3.9 g/dL (3.2-5.5); BILIRUBIN,TOTAL 0.8 mg/dL (0.2-1.0); CALCIUM 9.1 mg/dL (8.5-10.3); CREATININE 0.8 mg/dL (0.4-1.0)
[2018-10-22] MEDS ORDERED: CIPROFLOXACIN 250 MG TABLET PO STA (20:03)
[2018-10-22] MEDS ORDERED: MORPHINE 2 MG/ML CARPUJECT IVP STA (20:08)
[2018-10-22] MEDS ORDERED: TAMSULOSIN 0.4 MG CAPSULE PO STA (20:08)
[2018-10-22 20:14] VITALS: BP 151/96
== END 2018-10-22 20:25 | disposition home or self-care (01) ==
LOC: ED 17:47
DX: N20.2 Calculus of kidney with calculus of ureter (principal); R82.71 Bacteriuria; R03.0 Elevated blood-pressure reading, without diagnosis of hypertension; Z87.442 Personal history of urinary calculi
CPT/HCPCS: 36415; 80053; 81001; 81025; 83690; 85025; 87086; 96361; 96374; 96375; 99283; A9270; 81003

== ENCOUNTER 2019-03-22 12:11 | Emergency (ER) | payer OTHER ==
[2019-03-22 13:08] LABS: RAPID STREP SCREEN Negative (Negative)
--- NOTE | 2019-03-22 14:19 | ED Physician Documentation ---
PD HPI URI - Stated complaint Stated Complaint: COUGH/SORE THROAT/FEVER - Chief complaint Chief Complaint: Resp - History obtained from History obtained from: Patient, Family - History of Present Illness Timing - onset: How many days ago (3) Timing duration: Days (3) Timing details: Gradual onset Pain level max: 4 Associated symptoms: Fever, Chills, Nasal congestion, Sore throat, Dry cough Contributing factors: Sick contact Improves by: Rest Worsened by: Activity, Breathing Recently seen: Not recently seen Review of Systems Constitutional: reports: Fever, Chills Nose: reports: Rhinorrhea / runny nose, Congestion Respiratory: reports: Cough GI: denies: Vomiting, Diarrhea : denies: Now EGA Skin: denies: Rash Musculoskeletal: denies: Neck pain, Back pain Neurologic: denies: Headache PD PAST MEDICAL HISTORY - Past Medical History Cardiovascular: None Respiratory: None Neuro: None Endocrine/Autoimmune: None GI: 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 HEENT: None Psych: None Musculoskeletal: None Derm: Eczema - Past Surgical History Past Surgical History: No - Present Medications Home Medications: Ambulatory Orders Medication Instructions Recorded Confirmed Ciprofloxacin HCl [Cipro] 500 mg PO BID #20 tablet 10/22/18 Hydrocodone/Acetaminophen 1 - 2 each PO Q6H PRN #14 tablet 10/22/18 [Hydrocodon-Acetaminophen 5-325] Loratadine [Claritin] 10 mg PO 10/22/18 Ondansetron Odt [Zofran] 4 mg TL Q6H PRN #10 tablet 10/22/18 Tamsulosin [Flomax] 0.4 mg PO DAILY #14 capsule 10/22/18 Benzonatate [Tessalon [place]] 100 - 200 mg PO TID PRN #30 capsule 03/22/19 - Allergies Allergies/Adverse Reactions: Allergies Allergy/AdvReac Type Severity Reaction Status Date / Time Sulfa (Sulfonamide Allergy Rash Verified 03/22/19 12:49 Antibiotics) - Social History Does the pt smoke?: No Smoking Status: Never smoker Does the pt drink ETOH?: No Does the pt have substance abuse?: No - Immunizations Immunizations are current?: Yes - POLST Patient has POLST: No PD ED PE NORMAL - Vitals Vital signs reviewed: Yes - General General: Alert and oriented X 3, No acute distress, Well developed/nourished - HEENT HEENT: Moist mucous membranes - Neck Neck: Supple, no meningeal sign - Cardiac Cardiac: RRR, Strong equal pulses - Respiratory Respiratory: No respiratory distress, Other (mild rhonchi LLL) - Abdomen Abdomen: Soft, Non tender, Non distended - Derm Derm: Warm and dry, No rash - Neuro Neuro: Alert and oriented X 3 - Psych Psych: Normal mood, Normal affect Results - Vitals Vitals: Vital Signs - 24 hr 03/22/19 03/22/19 12:43 14:44 Temperature 37.2 C 37.4 C Heart Rate 74 79 Respiratory 18 16 Rate Blood Pressure 133/99 H 115/77 O2 Saturation 98 98 Oxygen O2 Source Room air - Labs Labs: Laboratory Tests 03/22/19 03/22/19 12:55 12:55 Influenza A (Rapid) Negative Influenza B (Rapid) Negative Group A Strep Rapid Negative - Rads (name of study) cxr Radiology: Prelim report reviewed, EMP read contemporaneously, See rad report (No acute disease) PD MEDICAL DECISION MAKING - ED course Complexity details: reviewed results, re-evaluated patient, considered differential, d/w patient ED course: Patient presents to the emergency room with what appears to be a viral syndrome. She is well-appearing, nontoxic. Afebrile. No hypoxia. Negative influenza. Negative strep. We will continue supportive care and have her follow-up with her doctor. Patient counseled regarding signs and symptoms for which I believe and urgent re-evaluation would be necessary. Patient with good understanding of and agreement to plan and is comfortable going home at this time This document was made in part using voice recognition software. While efforts are made to proofread this document, sound alike and grammatical errors may occur. Departure - Departure Disposition: 01 Home, Self Care Clinical Impression: Viral URI with cough Condition: Good Instructions: ED Viral Syndrome Follow-Up: Onofre Flynn MD [Primary Care Provider] - Within 1 week Prescriptions: Benzonatate [Tessalon Perle] 100 - 200 mg PO TID PRN #30 capsule PRN Reason: Cough Comments: Return if you worsen. Follow up with your doctor for further care. Drink plenty of fluids and rest. Forms: Activity restrictions Discharge Date/Time: 03/22/19 15:50
[2019-03-22 14:44] VITALS: BP 115/77
--- NOTE | 2019-03-22 15:41 | XRAY Report ---
Reason: cough Procedure Date: 03/22/2019 Accession Number: [id number] / [id number] Procedure: XR - Chest 2 View X-Ray CPT Code: 24020 Final Report FULL RESULT: EXAM: CHEST RADIOGRAPHY EXAM DATE: 03/22/2019 02:28 PM. CLINICAL HISTORY: Cough, fever, diarrhea, sore throat, and headache. COMPARISON: None. TECHNIQUE: 2 views. FINDINGS: Lungs/Pleura: Normal volumes. No focal infiltrate or bronchial wall thickening. No evidence of edema. No pleural effusion or pneumothorax. Mediastinum: Normal cardiomediastinal contour. Other: Mild degenerative changes within the spine. IMPRESSION: No acute cardiopulmonary abnormality. RADIA
== END 2019-03-22 15:50 | disposition home or self-care (01) ==
LOC: ED 12:11
DX: J06.9 Acute upper respiratory infection, unspecified (principal)
CPT/HCPCS: 71046; 87070; 87275; 87276; 87430; 99284

== ENCOUNTER 2019-05-02 14:29 | Emergency (ER) | payer OTHER ==
[2019-05-02 14:55] LABS: RAPID STREP SCREEN Negative (Negative)
[2019-05-02 15:15] VITALS: BP 150/90
--- NOTE | 2019-05-02 15:26 | ED Physician Documentation ---
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 HEENT: None Psych: None Musculoskeletal: None Derm: Eczema - Past Surgical History Past Surgical History: No - Present Medications Home Medications: Ambulatory Orders Medication Instructions Recorded Confirmed Ciprofloxacin HCl [Cipro] 500 mg PO BID #20 tablet 10/22/18 Hydrocodone/Acetaminophen 1 - 2 each PO Q6H PRN #14 tablet 10/22/18 [Hydrocodon-Acetaminophen 5-325] Loratadine [Claritin] 10 mg PO 10/22/18 Ondansetron Odt [Zofran] 4 mg TL Q6H PRN #10 tablet 10/22/18 Tamsulosin [Flomax] 0.4 mg PO DAILY #14 capsule 10/22/18 Benzonatate [Tessalon Perle] 100 - 200 mg PO TID PRN #30 capsule 03/22/19 - Allergies Allergies/Adverse Reactions: Allergies Allergy/AdvReac Type Severity Reaction Status Date / Time Sulfa (Sulfonamide Allergy Rash Verified 05/02/19 14:34 Antibiotics) - Social History Does the pt smoke?: No Smoking Status: Never smoker Does the pt drink ETOH?: No Does the pt have substance abuse?: No - Immunizations Immunizations are current?: Yes - POLST Patient has POLST: No Results - Vitals Vitals: Vital Signs - 24 hr 05/02/19 05/02/19 14:34 15:12 Temperature 36.9 C 37 C Heart Rate 85 69 Respiratory 17 16 Rate Blood Pressure 153/93 H 150/90 H O2 Saturation 98 99 Oxygen O2 Source Room air - Labs Labs: Laboratory Tests 05/02/19 14:40 Group A Strep Rapid Negative
[2019-05-02] MEDS ORDERED: CHERRY SYRUP 10 ML UDC PO ONE (15:48)
[2019-05-02] MEDS ORDERED: DEXAMETHASONE 10 MG/ML VIAL PO STA (15:48)
--- NOTE | 2019-05-02 15:51 | ED Physician Documentation ---
PD HPI HEENT - Stated complaint Stated Complaint: SORE THROAT,CONGESTION,FEVER - Chief complaint Chief Complaint: Heent - History obtained from History obtained from: Patient, Family - History of Present Illness Timing - onset: How many days ago (3) Timing - duration: Days (3) Timing - details: Gradual onset, Still present Location: Throat Improves: Medication Worsens: Swalllowing Associated symptoms: Fever, Congestion, Rhinorrhea, Swollen nodes, Cough Similar symptoms before: Diagnosis (strep) Recently seen: Not recently seen - Additional information Additional information: Previously well 39-year-old female has developed a sore throat cough congestion and fever. She has had this similarly with strep previously she does not have any specific shortness of breath and has not had to use an inhaler previously. Review of Systems Constitutional: reports: Fever Eyes: denies: Decreased vision Ears: denies: Ear pain Nose: reports: Rhinorrhea / runny nose, Congestion Throat: reports: Sore throat Cardiac: denies: Chest pain / pressure, Palpitations Respiratory: reports: Cough. denies: Dyspnea GI: denies: Vomiting PD PAST MEDICAL HISTORY - Past Medical History Past Medical History: Yes Cardiovascular: None Respiratory: None Neuro: None Endocrine/Autoimmune: None GI: None [employer] WORKER: None : None HEENT: None Psych: None Musculoskeletal: None Derm: Eczema - Past Surgical History Past Surgical History: No - Present Medications Home Medications: Ambulatory Orders Medication Instructions Recorded Confirmed Ciprofloxacin HCl [Cipro] 500 mg PO BID #20 tablet 10/22/18 Hydrocodone/Acetaminophen 1 - 2 each PO Q6H PRN #14 tablet 10/22/18 [Hydrocodon-Acetaminophen 5-325] Loratadine [Claritin] 10 mg PO 10/22/18 Ondansetron Odt [Zofran] 4 mg TL Q6H PRN #10 tablet 10/22/18 Tamsulosin [Flomax] 0.4 mg PO DAILY #14 capsule 10/22/18 Benzonatate [Tessalon Perle] 100 - 200 mg PO TID PRN #30 capsule 03/22/19 Azithromycin [Zithromax] 250 mg PO DAILY #6 tablet 05/02/19 - Allergies Allergies/Adverse Reactions: Allergies Allergy/AdvReac Type Severity Reaction Status Date / Time Sulfa (Sulfonamide Allergy Rash Verified 05/02/19 14:34 Antibiotics) - Social History Does the pt smoke?: No Smoking Status: Never smoker Does the pt drink ETOH?: No Does the pt have substance abuse?: No - Immunizations Immunizations are current?: Yes - POLST Patient has POLST: No PD ED PE NORMAL - Vitals Vital signs reviewed: Yes (hypertensive) - General General: Alert and oriented X 3, No acute distress, Well developed/nourished - HEENT HEENT: Atraumatic, PERRL, EOMI, Other (There is inflammation in the right TM with flattening of the umbo. The left has only mild inflammation in the attic. 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, No motor deficit, No sensory deficit, Normal speech Eye Opening: Spontaneous Motor: Obeys Commands Verbal: Oriented GCS Score: 15 - Psych Psych: Normal mood, Normal affect Results - Vitals Vitals: Vital Signs - 24 hr 05/02/19 05/02/19 14:34 15:12 Temperature 36.9 C 37 C Heart Rate 85 69 Respiratory 17 16 Rate Blood Pressure 153/93 H 150/90 H O2 Saturation 98 99 Oxygen O2 Source Room air - Labs Labs: Laboratory Tests 05/02/19 14:40 Group A Strep Rapid Negative PD MEDICAL DECISION MAKING - ED course Complexity details: reviewed old records, reviewed results, considered differential, d/w patient, d/w family ED course: 39-year-old female with a sore throat and fever with cough has otitis and tonsillitis on exam she is administered dexamethasone 10 mg orally here in the emergency department we will place her on some azithromycin. Departure - Departure Disposition: 01 Home, Self Care Clinical Impression: Tonsillitis Otitis media Qualifiers: Otitis media type: suppurative Chronicity: acute Laterality: bilateral Recurrence: non-recurrent Spontaneous tympanic membrane rupture: without spontaneous rupture Qualified Code(s): H66.003 - Acute suppurative otitis media without spontaneous rupture of ear drum, bilateral Condition: Stable Instructions: ED Otitis Media Acute Adult, ED Tonsillitis Follow-Up: Onofre Flynn MD [Primary Care Provider] - Prescriptions: Azithromycin [Zithromax] 250 mg PO DAILY #6 tablet Forms: Activity restrictions Discharge Date/Time: 05/02/19 16:12
== END 2019-05-02 16:12 | disposition home or self-care (01) ==
LOC: ED 14:29
DX: J03.90 Acute tonsillitis, unspecified (principal); H66.003 Acute suppurative otitis media without spontaneous rupture of ear drum, bilateral
CPT/HCPCS: 87070; 87077; 87430; 99283; 99284; A9270